=== PATIENT | female | born 1985 | race American Indian/Alaskan Native ===

== ENCOUNTER 2020-07-29 14:11 | Emergency (ER) | payer SELFPAY ==
[2020-07-29 14:38] VITALS: BP 116/59
--- NOTE | 2020-07-29 14:59 | Emergency Department Report ---
ED General Adult HPI - General Chief complaint: Skin Rash Stated complaint: RASH Time Seen by Provider: 07/29/20 14:55 Source: patient Mode of arrival: Ambulatory Limitations: No Limitations - History of Present Illness Initial comments: 34 yo AA F pt presents with complaints of diffuse itchy rash x last night. She denies any pain, changes in her products, known food allergies, new medications, or SOB/dysphagia. She has not tried any OTC meds for her symptoms. Pt also denies chest pain or sore throat. - Related Data Previous Rx's Medication Instructions Recorded Last Taken Type Famotidine [Pepcid] 20 mg PO BID 7 Days #14 tablet 07/29/20 Unknown Rx Loratadine 10 mg PO QDAY 7 Days #7 tablet 07/29/20 Unknown Rx Prednisone [predniSONE 10 mg 10 mg PO .TAPER #1 tab.ds.pk 07/29/20 Unknown Rx (6-Day Pack, 21 Tabs)] Allergies Allergy/AdvReac Type Severity Reaction Status Date / Time No Known Allergies Allergy Unverified 07/29/20 14:35 ED Review of Systems ROS: Stated complaint: RASH Other details as noted in HPI Constitutional: denies: chills, diaphoresis, fever, malaise, weakness ENT: denies: throat pain Respiratory: denies: cough, shortness of breath Cardiovascular: denies: chest pain Gastrointestinal: denies: abdominal pain, nausea, vomiting Skin: rash. denies: lesions Neurological: denies: headache, numbness, paresthesias Hematological/Lymphatic: denies: swollen glands ED Past Medical Hx - Past Medical History Previous Medical History?: No - Surgical History Past Surgical History?: Yes Additional Surgical History: biopsy - Social History Smoking Status: Never Smoker Substance Use Type: None - Medications Home Medications: Home Medications Medication Instructions Recorded Confirmed Last Taken Type Famotidine [Pepcid] 20 mg PO BID 7 Days #14 tablet 07/29/20 Unknown Rx Loratadine 10 mg PO QDAY 7 Days #7 tablet 07/29/20 Unknown Rx Prednisone [predniSONE 10 mg 10 mg PO .TAPER #1 tab.ds.pk 07/29/20 Unknown Rx (6-Day Pack, 21 Tabs)] ED Physical Exam - General Limitations: No Limitations General appearance: alert, in no apparent distress - Head Head exam: Present: atraumatic, normocephalic - Eye Eye exam: Present: normal appearance. Absent: scleral icterus - Respiratory Respiratory exam: Absent: respiratory distress - Cardiovascular Cardiovascular Exam: Present: regular rate, normal rhythm. Absent: systolic murmur, diastolic murmur, rubs, gallop - Neurological Exam Neurological exam: Present: alert, oriented X3, normal gait - Psychiatric Psychiatric exam: Present: normal affect, normal mood - Skin Skin exam: Present: warm, dry, intact, normal color, rash (diffuse urticarial rash noted to bilateral upper and lower extremities and torso. No drainage or ttp noted) ED Course Vital Signs 07/29/20 14:35 Temperature 98.6 F Pulse Rate 115 H Respiratory 18 Rate Blood Pressure 116/59 O2 Sat by Pulse 96 Oximetry ED Medical Decision Making - Medical Decision Making Diffuse urticarial rash noted on exam. Will treat for allergic dermatitis with claritin, pepcid, and prednisone. HR mildly elevated at 105 on recheck-pt continues to deny CP, SOB, leg pain/swelling, recent long travel, or hx of DVT/PE. She admits to low water intake and anxiety. Discussed hydration and signs and symptoms that should prompt immediate return to the ED in detail with pt who verbalizes understanding. Critical care attestation.: If time is entered above; I have spent that time in minutes in the direct care of this critically ill patient, excluding procedure time. ED Disposition Clinical Impression: Allergic dermatitis Disposition: DC-01 TO HOME OR SELFCARE Is pt being admited?: No Condition: Stable Instructions: Contact Dermatitis, [id number] Prescriptions: Loratadine 10 mg PO QDAY 7 Days #7 tablet Famotidine [Pepcid] 20 mg PO BID 7 Days #14 tablet Prednisone [predniSONE 10 mg (6-Day Pack, 21 Tabs)] 10 mg PO .TAPER #1 tab.ds.pk Referrals: [facility] [Provider Group] - 3-5 Days
== END 2020-07-29 16:22 | disposition home or self-care (01) ==
LOC: ED 14:11
DX: L23.9 Allergic contact dermatitis, unspecified cause (principal); Z79.899 Other long term (current) drug therapy; Z98.890 Other specified postprocedural states
CPT/HCPCS: 99282